=== PATIENT | male | born 1995 | race Caucasian/White ===

== ENCOUNTER 2016-10-26 16:09 | Emergency (ER) | payer BC, OTHER ==
--- NOTE | ~2016-10-26 | CT4 ---
[facility] A Service of [facility] & [facility] RADIOLOGY TEXT RESULTS PATIENT: ALIREZA CROOK LOCATION: [facility] : [birth year] UNIT #: [id number] AGE: [address]: Filippo Sarmiento MD SEX: M ORDER DR: [id number] [facility] [address] [place], [place] [address] [id number] E MR#: [id number] Acc #: [id number] NAME: ALIREZA CROOK : 1995 SEX: M STUDY DATE/TIME: 10/26/2016 15:21 UNIT: [facility] ROOM: STUDY DESCRIPTION: CT Abd and Pelv Wo Cont Attending Physician: Filippo Sarmiento M.D. Ordering Physician: Filippo Sarmiento M.D. Primary Care Physician: Rocío Rivera M.D. MEDICAL IMAGING REPORT This report is preliminary unless electronic signature is present EXAM CT of the abdomen and pelvis without contrast, 10/26/16 COMPARISON STUDIES None. HISTORY Left upper quadrant abdominal pain, back pain, nausea since 10/21/[address] exam was performed with one or more of the following radiation dose reduction techniques: automatic exposure control, adjustment of mA and/or kV according to patient size, and iterative reconstruction. FINDINGS CT of the abdomen and pelvis were obtained without IV or oral contrast in the axial plane followed by sagittal and coronal reformats. Mild oral contrast from probably a previous ingestion is noted faintly in some of the colonic loops. Lower chest: Lungs are well aerated. The heart is of normal size. No significant lymphadenopathy in the visualized portions of the mediastinum. Bones are unremarkable. Abdomen: Lack of IV contrast limits evaluation of solid organs. Lack of oral contrast limits evaluation of bowel loops. There is a 1.5 mm nonobstructing stone in the superior left renal calyx. No hydronephrosis or contour deformity renal mass is seen. Adrenal glands, liver, decompressed gallbladder, spleen and pancreas do not demonstrate any significant abnormality. No evidence of bowel obstruction, free fluid or free air intraperitoneally. The appendix is within normal limits. No evidence of aortic aneurysm or significant lymphadenopathy. There are STS. [facility] A Service of [facility] & [facility] RADIOLOGY TEXT RESULTS PATIENT: ALIRE[facility] CROOK [id number] [birth year] UNIT #: [id number] AGE: [address]: Filippo Sarmiento MD SEX: M ORDER DR: multiple scattered mesenteric lymph nodes noted, but they are not enlarged by size criteria. Small fatty umbilical hernia. Pelvis: Partially decompressed urinary bladder is noted. Visualized prostate is unremarkable. Seminal vesicles are symmetrical. Minimal prominence cannot be excluded. Bowel loops do not demonstrate any significant abnormality. No free fluid or fluid collection is seen. Bones are within normal limits. IMPRESSION 1. Nonobstructing 1.5 mm stone is noted in the superior left renal Calyx. No associated hydronephrosis, ureteral stones or urinary bladder stones are seen. 2. There are multiple mesenteric lymph nodes noted in the abdomen. They are not enlarged by size criteria, but are many in number, nonspecific. 3. Appendix and gallbladder are unremarkable. 4. No evidence of bowel obstruction, free fluid, free air or significant contour deforming mass is seen in the solid organs. 5. Lack of IV contrast limits evaluation of solid organs, and lack of oral contrast limits evaluation of the bowel loops. Dictated by... Esthela Downing M.D. THIS IS AN ELECTRONICALLY VERIFIED REPORT Esthela Downing M.D. at 10/28/2016 1:41 PM CPR/yuki TD: 10/27/2016 10:22 JOB #: [id number] MEDICAL IMAGING REPORT Page 1 of 1 COPY
[2016-10-26 14:38] LABS: BASOPHIL% 0.5 % (0-2.5); EOSINOPHIL# 0.2 X10e3 (0-0.7); EOSINOPHIL% 2.6 % (0.0-7.0); HEMATOCRIT 51.8 % (38.0-50.0); HEMOGLOBIN 17.2 gm/dL (13.0-16.0); LYMPHOCYTE# 3.1 X10e3 (1.0-3.5); LYMPHOCYTE% 33.4 % (17.0-45.0); MEAN CELL VOLUME 84.8 FL (83-96); MEAN CORPUSCULAR HEMOGLOBIN 28.2 PG (28-34); MEAN CORPUSCULAR HGB CONC 33.3 g/dL (30-36); MONOCYTE# 0.7 X10e3 (0-1.0); MONOCYTE% 7.6 % (3.0-12.0); NEUTROPHIL# 5.2 X10e3 (1.5-7.1); NEUTROPHIL% 55.9 % (40-75); PLATELET COUNT 320 X10e3 (140-420); RED BLOOD COUNT 6.11 X10e (3.90-5.60); RED CELL DISTRIBUTION WIDTH 13.7 % (11.0-15.5); WHITE BLOOD COUNT 9.3 X10e3 (4.0-10.5)
[2016-10-26 14:40] LABS: DIFF IND NO
[2016-10-26 15:04] LABS: ALBUMIN SERUM 5.3 g/dL (3.5-5.0); BILIRUBIN, DIRECT 0.1 mg/dL (0.0-0.2); BILIRUBIN,INDIRECT 0.8 mg/dL (0.0-0.9); BILIRUBIN,TOTAL 0.9 mg/dL (0.2-2.0); CALCIUM SERUM 9.9 mg/dL (8.4-10.2); GLOM FILT RATE Estimated 107.1 mL/min (>60); POTASSIUM 3.8 mmol/L (3.5-5.1); PROTEIN TOTAL SERUM 8.7 g/dL (6.0-8.3)
== END 2016-10-26 17:00 | disposition home or self-care (01) ==
LOC: CED 16:09
PROVIDERS: Emergency Medicine
DX: N20.0 Calculus of kidney (principal); I88.0 Nonspecific mesenteric lymphadenitis; Z88.0 Allergy status to penicillin
CPT/HCPCS: 36415; 74176; 80048; 80076; 82150; 83690; 85025; 96361; 96374; 99284; J1885

== ENCOUNTER 2016-10-31 23:25 | Emergency (ER) | payer BC, OTHER ==
--- NOTE | ~2016-10-31 | CT2 ---
[facility] A Service of [facility] & [facility] RADIOLOGY TEXT RESULTS PATIENT: ALIREZA CROOK LOCATION: [facility] : [birth year] UNIT #: [id number] AGE: [address]: JULIEN HONEYCUTT APRN SEX: M ORDER DR: [id number] [facility] [address] [place], [place] [address] [id number] E MR#: [id number] Acc #: [id number] NAME: ALIREZA CROOK : 1995 SEX: M STUDY DATE/TIME: 11/01/2016 0:57 UNIT: [facility] ROOM: STUDY DESCRIPTION: CT Abd and Pelv W Cont Attending Physician: Julien Honeycutt Aprn Ordering Physician: Julien Honeycutt Aprn Primary Care Physician: Rocío Rivera M.D. MEDICAL IMAGING REPORT This report is preliminary unless electronic signature is present EXAM CT scan of the abdomen and pelvis with contrast INDICATIONS Abdominal pain, constipation, diagnosed with kidney stone 1 week ago. COMPARISON 10/26/2016. FINDINGS Axial 5 mm images were obtained through the abdomen and pelvis with IV and oral contrast. The patient was given 100 mL of Isovue-370. This CT exam was performed with one or more of the following radiation dose reduction techniques: Automatic exposure control, adjustment of mA and/or kV according to patient size, and iterative reconstruction. FINDINGS The lung bases are clear. The liver, gallbladder, spleen, pancreas, adrenal glands and kidneys are normal. The prior study did show a 2 mm left renal stone, but it is no longer visible. The aorta is normal in size and there is no adenopathy. There is no retroperitoneal adenopathy. The multiple lymph nodes in the right lower quadrant mesentery that measure less than 1 cm in transverse dimension are unchanged from the prior study. The appendix is normal. The bladder and prostate gland are normal and the bones are unremarkable. IMPRESSION 1. Stable small lymph nodes in the mesentery, particularly in the right lower quadrant. While they are not pathologically enlarged, their sheer number is more than is usually seen and this could represent mesenteric adenitis. No other adenopathy is identified. 2. The small left renal stone noted 10/26/2016 on the prior study seems to have been passed, it is no longer visible. [facility] A Service of [facility] RADIOLOGY TEXT RESULTS PATIENT: ALIREZA CROOK LOCATION: [facility] : [birth year] UNIT #: [id number] AGE: [address]: JULIEN HONEYCUTT APRN SEX: M ORDER DR: 3. Normal appendix. Dictated by... Blade Meneses M.D. THIS IS AN ELECTRONICALLY VERIFIED REPORT Blade Meneses M.D. at 11/01/2016 1:14 PM FEL/psc TD: 11/01/2016 02:47 JOB #: [id number] MEDICAL IMAGING REPORT Page 1 of 1 COPY
[2016-10-31 23:45] LABS: BASOPHIL# 0.1 X10e3 (0-0.3); BASOPHIL% 0.4 % (0-2.5); EOSINOPHIL# 0.1 X10e3 (0-0.7); HEMATOCRIT 47.3 % (38.0-50.0); HEMOGLOBIN 16.3 gm/dL (13.0-16.0); LYMPHOCYTE# 2.7 X10e3 (1.0-3.5); LYMPHOCYTE% 20.6 % (17.0-45.0); MEAN CELL VOLUME 83.5 FL (83-96); MEAN CORPUSCULAR HEMOGLOBIN 28.7 PG (28-34); MEAN CORPUSCULAR HGB CONC 34.3 g/dL (30-36); MEAN PLATELET VOLUME 7.6 FL (6.5-11.5); MONOCYTE# 0.7 X10e3 (0-1.0); MONOCYTE% 5.6 % (3.0-12.0); NEUTROPHIL# 9.6 X10e3 (1.5-7.1); NEUTROPHIL% 72.4 % (40-75); PLATELET COUNT 303 X10e3 (140-420); RED BLOOD COUNT 5.67 X10e (3.90-5.60); RED CELL DISTRIBUTION WIDTH 13.9 % (11.0-15.5); WHITE BLOOD COUNT 13.3 X10e3 (4.0-10.5)
[2016-10-31 23:47] LABS: DIFF IND NO
[2016-11-01 00:08] LABS: BILIRUBIN, DIRECT 0.1 mg/dL (0.0-0.2); BILIRUBIN,INDIRECT 1.3 mg/dL (0.0-0.9); BILIRUBIN,TOTAL 1.4 mg/dL (0.2-2.0); BUN/CREATININE RATIO 14.44; CALCIUM SERUM 9.5 mg/dL (8.4-10.2); CREATININE SERUM 0.9 mg/dL (0.6-1.4); GLOM FILT RATE Estimated 121.7 mL/min (>60); POTASSIUM 3.5 mmol/L (3.5-5.1)
[2016-11-01 00:51] LABS: URINE APPEARANCE CLEAR; URINE BILIRUBIN NEG (NEG); URINE BLOOD NEG (NEG); URINE COLOR YELLOW; URINE GLUCOSE NEG (NEG); URINE KETONE NEG (NEG); URINE LEUKOCYTE ESTERASE NEG (NEG); URINE NITRATE NEG (NEG); URINE PH 6.5 (5-8); URINE PROTEIN NEG (NEG); URINE SPECIFIC GRAVITY 1.005 (1.003-1.035); URINE UROBILINOGEN 0.2 MG/DL (NEG)
[2016-11-01 03:40] LABS: CULTURE INDICATED? NO
== END 2016-11-01 03:40 | disposition home or self-care (01) ==
LOC: CED 23:25
PROVIDERS: Nurse Practitioner Family
DX: I88.0 Nonspecific mesenteric lymphadenitis (principal); Z87.442 Personal history of urinary calculi; Z88.0 Allergy status to penicillin
CPT/HCPCS: 36415; 74177; 80048; 80076; 81003; 82150; 83690; 85025; 99284; J2270; J2405; Q9967

== ENCOUNTER 2016-12-31 12:36 | Emergency (ER) | payer BC, OTHER ==
--- NOTE | ~2016-12-31 | CR72 ---
[facility] A Service of [facility] & [facility] RADIOLOGY TEXT RESULTS PATIENT: ALIREZA CROOK LOCATION: [facility] : [birth year] UNIT #: [id number] AGE: [address]: Mitchell Craig DO SEX: M ORDER DR: [id number] [facility] [address] [place], [place] [address] [id number] E MR#: [id number] Acc #: [id number] NAME: ALIREZA CROOK : 1995 SEX: M STUDY DATE/TIME: 12/31/2016 13:37 UNIT: [facility] ROOM: STUDY DESCRIPTION: CR Chest Single View Portable Attending Physician: Mitchell Craig D.O. Ordering Physician: Mitchell Craig D.O. Primary Care Physician: Rocío Rivera M.D. MEDICAL IMAGING REPORT This report is preliminary unless electronic signature is present EXAM Portable chest 12/31/2016, [facility]. HISTORY 21-year-old male cough and congestion last 2 weeks. COMPARISON None. FINDINGS AP upright portable chest centered high and low demonstrate normal cardiac size and configuration. Hilar structures and mediastinal contours are preserved. Bilateral lungs are expanded and clear. Costophrenic angles are clear. IMPRESSION Negative chest. No acute finding. Dictated by... Ki Serna M.D. THIS IS AN ELECTRONICALLY VERIFIED REPORT Ki Serna M.D. at 01/01/2017 9:39 AM KERMITB/vladimir TD: 12/31/2016 16:27 JOB #: [id number] MEDICAL IMAGING REPORT Page 1 of 1 COPY
--- NOTE | ~2016-12-31 | CT2 ---
[facility] A Service of [facility] RADIOLOGY TEXT RESULTS PATIENT: ALIREZA CROOK LOCATION: [facility] : [birth year] UNIT #: [id number] AGE: [address]: Mitchell Craig DO SEX: M ORDER DR: [id number] [facility] [address] [place], [place] [address] [id number] E MR#: [id number] Acc #: [id number] NAME: ALIREZA CROOK : 1995 SEX: M STUDY DATE/TIME: 12/31/2016 16:11 UNIT: [facility] ROOM: STUDY DESCRIPTION: CT Abd and Pelv W Cont Attending Physician: Mitchell Craig D.O. Ordering Physician: Mitchell Craig D.O. Primary Care Physician: Rocío Rivera M.D. MEDICAL IMAGING REPORT This report is preliminary unless electronic signature is present EXAM CT abdomen and pelvis INDICATIONS Right lower abdominal pain. Right lower quadrant pain for [address] of the abdomen and pelvis with p.o. and IV contrast (100 mL Isovue-370 IV contrast). Coronal and sagittal reconstructions were obtained. This CT exam was performed with one or more of the following radiation dose reduction techniques: Automatic exposure control, adjustment of mA and/or kV according to patient size, and iterative reconstruction. COMPARISON CT abdomen and pelvis 11/01/2016 and 10/26/2016. FINDINGS ABDOMEN: The solid abdominal organs enhance normally. The gallbladder is not distended. The bowel is not dilated. No enlarged retroperitoneal or mesenteric lymph nodes. The abdominal aorta is normal in caliber. PELVIS: No pelvic mass. Bladder is unremarkable. No enlarged pelvic or inguinal lymph nodes. No acute osseous abnormalities. IMPRESSION 1. No acute findings in the abdomen or pelvis. Dictated by... Tomas Calloway M.D. [facility] A Service of [facility] RADIOLOGY TEXT RESULTS PATIENT: ALIREZA CROOK LOCATION: [facility] : [birth year] UNIT #: [id number] AGE: [address]: Mitchell Craig DO SEX: M ORDER DR: THIS IS AN ELECTRONICALLY VERIFIED REPORT Tomas Calloway M.D. at 01/01/2017 9:13 AM RPDarian/anthony TD: 12/31/2016 21:42 JOB #: [id number] MEDICAL IMAGING REPORT Page 1 of 1 COPY
[2016-12-31 13:10] LABS: BASOPHIL% 0.5 % (0-2.5); EOSINOPHIL# 0.2 X10e3 (0-0.7); EOSINOPHIL% 1.7 % (0.0-7.0); HEMOGLOBIN 15.7 gm/dL (13.0-16.0); LYMPHOCYTE# 2.2 X10e3 (1.0-3.5); LYMPHOCYTE% 23.6 % (17.0-45.0); MEAN CORPUSCULAR HEMOGLOBIN 28.4 PG (28-34); MEAN CORPUSCULAR HGB CONC 33.4 g/dL (30-36); MEAN PLATELET VOLUME 7.9 FL (6.5-11.5); MONOCYTE# 0.6 X10e3 (0-1.0); MONOCYTE% 6.8 % (3.0-12.0); NEUTROPHIL# 6.3 X10e3 (1.5-7.1); NEUTROPHIL% 67.4 % (40-75); PLATELET COUNT 299 X10e3 (140-420); RED BLOOD COUNT 5.53 X10e (3.90-5.60); RED CELL DISTRIBUTION WIDTH 13.8 % (11.0-15.5); WHITE BLOOD COUNT 9.3 X10e3 (4.0-10.5)
[2016-12-31 13:12] LABS: DIFF IND NO
[2016-12-31 13:33] LABS: ALBUMIN SERUM 4.8 g/dL (3.5-5.0); BILIRUBIN, DIRECT 0.1 mg/dL (0.0-0.2); BILIRUBIN,TOTAL 1.1 mg/dL (0.2-2.0); BUN/CREATININE RATIO 13.33; CALCIUM SERUM 9.3 mg/dL (8.4-10.2); CREATININE SERUM 0.9 mg/dL (0.6-1.4); GLOM FILT RATE Estimated 120.8 mL/min (>60); POTASSIUM 3.8 mmol/L (3.5-5.1); PROTEIN TOTAL SERUM 7.5 g/dL (6.0-8.3)
[2016-12-31 13:49] LABS: URINE SOURCE CLEAN CATCH
[2016-12-31 14:20] LABS: URINE APPEARANCE CLEAR; URINE BILIRUBIN NEG (NEG); URINE BLOOD NEG (NEG); URINE COLOR YELLOW; URINE GLUCOSE NORM (NEG); URINE KETONE NEG (NEG); URINE LEUKOCYTE ESTERASE NEG (NEG); URINE NITRATE NEG (NEG); URINE PROTEIN NEG (NEG); URINE UROBILINOGEN NORM (NEG)
[2016-12-31 14:21] LABS: CULTURE INDICATED? NO
== END 2016-12-31 17:20 | disposition home or self-care (01) ==
LOC: CED 12:36
DX: R10.31 Right lower quadrant pain (principal); R05 Cough; Z87.442 Personal history of urinary calculi; Z90.89 Acquired absence of other organs; Z88.0 Allergy status to penicillin; Z98.890 Other specified postprocedural states
CPT/HCPCS: 36415; 71010; 74177; 80048; 80076; 81003; 83690; 84484; 85025; 85379; 96360; 99284; Q9967

== ENCOUNTER 2017-02-26 15:31 | Emergency (ER) | payer BC, OTHER ==
[~2017-02-26] VITALS: Ht 175.3 cm; Wt 73.9 kg
--- NOTE | ~2017-02-26 | CT4 ---
[facility] A Service of [facility] RADIOLOGY TEXT RESULTS PATIENT: ALIREZA CROOK LOCATION: [facility] : [birth year] UNIT #: [id number] AGE: [address]: Filippo Sarmiento MD SEX: M ORDER DR: [id number] [facility] [address] [place], [place] [address] [id number] E MR#: [id number] Acc #: [id number] NAME: ALIREZA CROOK : 1995 SEX: M STUDY DATE/TIME: 02/26/2017 19:23 UNIT: [facility] ROOM: STUDY DESCRIPTION: CT Abd and Pelv Wo Cont Attending Physician: Filippo Sarmiento M.D. Ordering Physician: Filippo Sarmiento M.D. Primary Care Physician: Rocío Rivera M.D. MEDICAL IMAGING REPORT This report is preliminary unless electronic signature is present EXAM CT abdomen and pelvis without contrast HISTORY Right lower quadrant pain for [address] exam was performed with one or more of the following radiation dose reduction techniques: automatic exposure control, adjustment of mA and/or kV according to patient size, and iterative reconstruction. FINDINGS CT abdomen and pelvis was performed without contrast CT ABDOMEN: The liver, gallbladder, spleen, pancreas, right kidney, and adrenal glands are normal. A 2 mm nonobstructing stone in the upper pole left kidney. No perinephric stranding. No hydronephrosis or ureteral dilatation. Very small umbilical hernia containing fat. Normal appendix in the lateral right mid abdomen. CT PELVIS: No free fluid or inflammatory stranding. Urinary bladder is normal. No bowel dilatation. IMPRESSION 1. No acute findings. 2. Normal appendix. 3. No urinary obstruction. 4. 2 mm nonobstructing stone in the upper pole of the left kidney. Dictated by... Shawn Recinos M.D. [facility] A Service of [facility] RADIOLOGY TEXT RESULTS PATIENT: ALIREZA CROOK LOCATION: [facility] : [birth year] UNIT #: [id number] AGE: [address]: Filippo Sarmiento MD SEX: M ORDER DR: THIS IS AN ELECTRONICALLY VERIFIED REPORT Shawn Luz Elena Recinos M.D. at 02/27/2017 11:24 PM EZRA/maritza TD: 02/27/2017 01:44 JOB #: [id number] MEDICAL IMAGING REPORT Page 1 of 1 COPY
[2017-02-26 18:17] LABS: BASOPHIL# 0.1 X10e3 (0-0.3); BASOPHIL% 0.5 % (0-2.5); EOSINOPHIL# 0.2 X10e3 (0-0.7); EOSINOPHIL% 1.5 % (0.0-7.0); HEMATOCRIT 47.3 % (38.0-50.0); HEMOGLOBIN 16.3 gm/dL (13.0-16.0); LYMPHOCYTE# 2.4 X10e3 (1.0-3.5); LYMPHOCYTE% 22.7 % (17.0-45.0); MEAN CELL VOLUME 84.1 FL (83-96); MEAN CORPUSCULAR HEMOGLOBIN 29.1 PG (28-34); MEAN CORPUSCULAR HGB CONC 34.6 g/dL (30-36); MEAN PLATELET VOLUME 7.3 FL (6.5-11.5); MONOCYTE# 0.8 X10e3 (0-1.0); MONOCYTE% 7.5 % (3.0-12.0); NEUTROPHIL# 7.3 X10e3 (1.5-7.1); NEUTROPHIL% 67.8 % (40-75); PLATELET COUNT 290 X10e3 (140-420); RED BLOOD COUNT 5.62 X10e (3.90-5.60); WHITE BLOOD COUNT 10.8 X10e3 (4.0-10.5)
[2017-02-26 18:21] LABS: DIFF IND NO
[2017-02-26 18:44] LABS: ALBUMIN SERUM 5.1 g/dL (3.5-5.0); BILIRUBIN, DIRECT 0.1 mg/dL (0.0-0.2); BILIRUBIN,TOTAL 1.1 mg/dL (0.2-2.0); CALCIUM SERUM 9.5 mg/dL (8.4-10.2); CREATININE SERUM 0.8 mg/dL (0.6-1.4); GLOM FILT RATE Estimated 126.9 mL/min (>60); POTASSIUM 3.8 mmol/L (3.5-5.1); PROTEIN TOTAL SERUM 7.7 g/dL (6.0-8.3)
[2017-02-26 20:35] LABS: URINE SOURCE CLEAN CATCH
[2017-02-26 20:42] LABS: URINE APPEARANCE CLEAR; URINE BILIRUBIN NEG (NEG); URINE BLOOD NEG (NEG); URINE COLOR YELLOW; URINE GLUCOSE NEG (NEG); URINE KETONE NEG (NEG); URINE LEUKOCYTE ESTERASE NEG (NEG); URINE NITRATE NEG (NEG); URINE PH 7.5 (5-8); URINE PROTEIN NEG (NEG); URINE SPECIFIC GRAVITY 1.021 (1.003-1.035); URINE UROBILINOGEN 0.2 MG/DL (NEG)
[2017-02-26 20:47] LABS: CULTURE INDICATED? NO
== END 2017-02-26 20:59 | disposition home or self-care (01) ==
LOC: CED 15:31
PROVIDERS: Emergency Medicine
DX: R10.11 Right upper quadrant pain (principal); Z88.0 Allergy status to penicillin
CPT/HCPCS: 36415; 74176; 80048; 80076; 81003; 82150; 83690; 85025; 99284